=== PATIENT | male | born 1960 | race Two or more races ===

== ENCOUNTER → 2024-11-18 | Outpatient (CLI) | payer OTHER, SELFPAY ==
--- NOTE | 2024-11-18 16:08 | XR_ITS ---
Examination: Bilateral hips, AP pelvis, 5 views Technique: AP, lateral views both hips, AP pelvis, 5 views Exam date and time: November 18, 2024, 1611 hours INDICATIONS: Patient fell 2 weeks ago with injury to both hips, bilateral hip pain. FINDINGS: No right or left hip fracture or hip dislocations Bones of the pelvis intact Mild bilateral hip osteoarthritis IMPRESSION: No acute hip or pelvic fracture
== END | disposition home or self-care (01) ==
PROVIDERS: PCP Nurse Practitioner Family; Referring Provider Nurse Practitioner Family; Visit Provider Nurse Practitioner Family
DX: S79.912A Unspecified injury of left hip, initial encounter (principal); S79.911A Unspecified injury of right hip, initial encounter; W19.XXXA Unspecified fall, initial encounter
CPT/HCPCS: 73522